=== PATIENT | male | born 1980 ===

== ENCOUNTER 2018-08-23 00:12 | Emergency (ER) | payer BC ==
[2018-08-23] MEDS ORDERED: Alum Hydrox/Mag Hydrox/Simeth 30 ML, Lidocaine 2% 15 ML PO ONE ×2 (00:22)
[2018-08-23] MEDS ORDERED: Sodium Chloride 0.9% 1,000 ML IV ONE (00:48)
[2018-08-23 01:04] LABS: CHLORIDE,CL 106 mEq/L (98-106); SODIUM,NA 144 mEq/L (136-145)
[2018-08-23] MEDS ORDERED: HYDROmorphone 1 MG/ML Syringe IVPUSH ONE ×2 (01:18→02:05)
[2018-08-23] MEDS ORDERED: Ondansetron 4 MG/2 ML SDV IVPUSH PRN (01:35)
[2018-08-23] MEDS ORDERED: Iopamidol 612 MG/ML 100 ML Bottle IVPUSH ONE (01:49)
[2018-08-23] MEDS ORDERED: Tamsulosin 0.4 MG Cap.ER PO ONE (03:05)
[2018-08-23] MEDS ORDERED: HYDROmorphone 1 MG/ML Syringe ONE (03:09)
--- NOTE | 2018-08-23 03:15 | EDM.PDOC ---
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 [No Known Home Meds] 08/23/18 [History] Past Medical History - Past Health History Medical/Surgical History: Denies Medical/Surgical History Social & Family History - Tobacco Use Smoking Status *Q: Never Smoker Second Hand Smoke Exposure: No ED ROS GENERAL - Review of Systems Review Of Systems: See Below Constitutional: Denies: Fever, Chills Respiratory: Denies: Shortness of Breath, Cough Cardiovascular: Denies: Chest Pain, Syncope GI/Abdominal: Reports: Abdominal Pain, Nausea. Denies: Constipation, Diarrhea, Vomiting : Reports: Flank Pain. Denies: Discharge, Dysuria, Frequency, Hematuria, Incontinence, Pain, Urgency, Urinary Retention Musculoskeletal: Denies: Neck Pain Skin: Denies: Rash ED EXAM, RENAL/ - Physical Exam Exam: See Below Exam Limited By: No Limitations General Appearance: Alert, WD/WN, Moderate Distress Respiratory/Chest: No Respiratory Distress, Lungs Clear Cardiovascular: Normal Peripheral Pulses, Regular Rate, Rhythm GI/Abdominal: Other (hypoactive bowel sounds in upper quadrants, normal bowel sounds in lower quadrants. TTP along LEFT abdoemn. No CVA pain.) (Male) Exam: Normal Inspection Back Exam: Normal Inspection, Full Range of Motion Extremities: Normal Inspection, Normal Range of Motion, Normal Capillary Refill Neurological: Alert, Oriented, Normal Cognition, No Motor/Sensory Deficits Skin Exam: Warm, Dry, Intact Lymphatic: No Adenopathy Course - Vital Signs Last Recorded V/S: Last Vital Signs Temp 36.8 C 08/23/18 02:18 Pulse 80 08/23/18 02:18 Resp 20 08/23/18 02:18 BP 126/83 08/23/18 02:18 Pulse Ox 97 08/23/18 02:18 - Orders/Labs/Meds Orders: Active Orders 24 hr Category Date Time Status Enema [RC] ASDIRECTED Care 08/23/18 00:41 Active Abdomen Pelvis w Cont [CT] Stat Exams 08/23/18 01:25 Ordered HYDROmorphone [Dilaudid] Med 08/23/18 03:16 Once 0.5 mg IVPUSH ONETIME ONE Ondansetron [Zofran] Med 08/23/18 01:35 Active 4 mg IVPUSH Q6H PRN Medication Orders Ondansetron HCl (Zofran) 4 mg IVPUSH Q6H PRN PRN Reason: Nausea/Vomiting Last Admin: 08/23/18 01:38 Dose: 4 mg Labs: Laboratory Tests 08/23/18 08/23/18 08/23/18 Range/Units 00:22 00:53 00:53 WBC 5.4 (5.0-10.0) 10^3/uL RBC 4.89 (4.50-6.00) 10^6/uL Hgb 14.9 (14.0-18.0) g/dL Hct 41.8 (40.0-54.0) % MCV 85.5 (82.0-94.0) fL MCH 30.5 (27.0-32.0) pg MCHC 35.6 (33.0-38.0) g/dL RDW Coeff of Mir 13.4 (11.0-15.0) % Plt Count 205 (150-400) 10^3/uL Add Manual Diff Yes Neutrophils % (Manual) 41 (35-85) % Lymphocytes % (Manual) 38 (21-55) % Monocytes % (Manual) 19 H (2-12) % Eosinophils % (Manual) 2 (0-5) % Absolute Neutrophils 2.21 (1.80-7.00) 10^3/uL Lymphocytes # (Manual) 2.05 (1.00-4.80) 10^3/uL Monocytes # (Manual) 1.03 H (0.00-0.80) 10^3/uL Eosinophils # (Manual) 0.11 (0.00-0.45) 10^3/uL Sodium 144 (136-145) mEq/L Potassium 4.3 (3.5-5.0) mEq/L Chloride 106 (98-106) mEq/L Carbon Dioxide 29 (21-32) mmol/L BUN 26 H (7-18) mg/dL Creatinine 1.3 (0.7-1.3) mg/dL Est Cr Clr Drug Dosing 75.11 mL/min Estimated GFR (MDRD) > 60 (>=60) mL/min Glucose 85 (75-99) mg/dL Calcium 9.1 (8.4-10.1) mg/dL Urine Color Yellow (YELLOW) Urine Appearance Slightly cloudy (CLEAR) Urine pH 7.5 (4.5-8.0) Ur Specific [place] 1.020 (1.003-1.020) Urine Protein Negative (NEGATIVE) mg/dL Urine Glucose (UA) Negative (NEGATIVE) mg/dL Urine Ketones Negative (NEGATIVE) mg/dL Urine Occult Blood Large H (NEGATIVE) Urine Nitrite Negative (NEGATIVE) Urine Bilirubin Negative (NEGATIVE) Urine Urobilinogen 0.2 (0.2-1.0) EU/dL Ur Leukocyte Esterase Negative (NEGATIVE) Urine RBC 75-100 H (0-5) /HPF Urine WBC 0-5 (0-5) /HPF Ur Squamous Epith Cells Rare (NOT SEEN) /HPF Amorphous Sediment Moderate H (NOT SEEN) /HPF Urine Bacteria Occasional H (NOT SEEN) /HPF Meds: Medications Generic Name Dose Route Start Last Admin Trade Name Freq PRN Reason Stop Dose Admin Ondansetron HCl 4 mg 08/23/18 01:35 08/23/18 01:38 Zofran IVPUSH 4 mg Q6H PRN Administration Nausea/Vomiting Discontinued Medications Generic Name Dose Route Start Last Admin Trade Name Freq PRN Reason Stop Dose Admin Al Hydroxide/Mg Hydroxide 30 0 ml 08/23/18 00:22 08/23/18 00:25 ml/ Lidocaine HCl 15 ml PO 08/23/18 00:23 45 ml ONETIME ONE Administration Hydromorphone HCl 1 mg 08/23/18 01:18 08/23/18 01:21 Dilaudid IVPUSH 08/23/18 01:19 1 mg ONETIME ONE Administration Hydromorphone HCl 1 mg 08/23/18 02:05 08/23/18 02:11 Dilaudid IVPUSH 08/23/18 02:06 1 mg ONETIME ONE Administration Sodium Chloride 1,000 mls @ 1,000 mls/hr 08/23/18 00:48 08/23/18 00:56 Normal Saline IV 08/23/18 01:47 1,000 mls/hr .BOLUS ONE Administration Iopamidol 100 ml 08/23/18 01:49 08/23/18 02:02 Isovue-300 (61%) IVPUSH 08/23/18 01:50 100 ml ONETIME ONE Administration Tamsulosin HCl 0.4 mg 08/23/18 03:05 08/23/18 03:08 Flomax PO 08/23/18 03:06 0.4 mg ONETIME ONE Administration Departure - Departure Time of Disposition: 03:12 Disposition: Home, Self-Care 01 Condition: Good Clinical Impression: Ureteral calculi - Discharge Information *PRESCRIPTION DRUG MONITORING PROGRAM REVIEWED*: Not Applicable *COPY OF PRESCRIPTION DRUG MONITORING REPORT IN PATIENT ANGELA: Not Applicable Instructions: Kidney Stones, Pain Medicine Instructions, [id number] Referrals: Hiren Mcdermott MD [Primary Care Provider] - Forms: ED Department Discharge - My Orders Last 24 Hours: My Active Orders 08/23/18 00:41 Enema [RC] ASDIRECTED 08/23/18 01:25 Abdomen Pelvis w Cont [CT] Stat 08/23/18 01:35 Ondansetron [Zofran] 4 mg IVPUSH Q6H PRN 08/23/18 03:16 HYDROmorphone [Dilaudid] 0.5 mg IVPUSH ONETIME ONE - Assessment/Plan Last 24 Hours: My Active Orders 08/23/18 00:41 Enema [RC] ASDIRECTED 08/23/18 01:25 Abdomen Pelvis w Cont [CT] Stat 08/23/18 01:35 Ondansetron [Zofran] 4 mg IVPUSH Q6H PRN 08/23/18 03:16 HYDROmorphone [Dilaudid] 0.5 mg IVPUSH ONETIME ONE Assessment:: Kidney Stone Labs return grossly WNL. UA shows hematuria. Given the great deal of pain that the patient is experiencing I ordered a contrast CT of the abdomen pelvis to search for emergent causes of pain. A kidney stone was found on the LEFT kidney with mild hydronephrosis. No other acute intrabdominal findings. Given 1 L IV NS , 4mg IV zofran, 0.4mg flomax PO, and multiple rounds of IV dilaudid here in ED which controlled his symptoms. Rx for PO norco. Advised patient and family for patient to rest, hydrate, take all Rx as directed, fu with PCP in 3 days, go to ER if change or worse. Patient and family report understanding and agreement with plan. DC home stable in care of family.
[2018-08-23] MEDS ORDERED: HYDROmorphone 0.5 MG/0.5 ML Syringe IVPUSH ONE (03:16)
== END 2018-08-23 03:39 | disposition home or self-care (01) ==
LOC: CC.ED 00:12
DX: N13.2 Hydronephrosis with renal and ureteral calculous obstruction (principal)
CPT/HCPCS: 36415; 74177; 80048; 81001; 85025; 96361; 96372; 96374; 96375; 96376; 99284; A9270; J1170; J1885; J2405; J7030; Q9967